=== PATIENT | female | born 1955 | race Caucasian/White ===

== ENCOUNTER 2017-11-30 21:55 | Emergency (ER) | payer OTHER ==
--- NOTE | 2017-11-30 22:29 | ERPHSYRPT ---
- History of Present Illness Time Seen by Provider: 11/30/17 22:18 Source: patient Exam Limitations: no limitations Physician History: Patient is a 62-year-old female with her complaining that she woke up today with a headache. It is continued with pain behind her eyes. She was to work tonight is unable to. Her blood pressure has been okay the past few weeks but today it was elevated. She took an old by systolic that she had for her blood pressure. She's been taking Aleve all day for the headache without relief. She took one of her 's [place] was without relief as well. She is slightly nauseated. She is photophobic. She has not vomited. She had some chest pain that she is describing as pressure that has completely resolved. This was after she took the by systolic. She also complained of some "burning" in her arms and legs that has completely resolved as well. Tonight she just comes in for her headache. Her past medical history is significant for hypertension, depression, and migraine headaches. Timing/Duration: today, improved Severity: moderate Modifying Factors: Improves With: ibuprofen Associated Symptoms: nausea, headaches, No vomiting, No abdominal pain Allergies/Adverse Reactions: No Known Drug Allergies Allergy (Verified 11/30/17 22:21) Home Medications: Cetirizine HCl/Pseudoephedrine [Allergy D-12 Tablet] 1 each PO DAILY 10/09/13 [ History] Fluoxetine HCl 20 mg [Prozac 20 MG] 20 mg PO DAILY 11/30/17 [History] Hx Tetanus, Diphtheria Vaccination/Date Given: Yes Hx Influenza Vaccination/Date Given: Yes (2012) Hx Pneumococcal Vaccination/Date Given: No - Review of Systems Constitutional: No Fever, No Chills Eyes: No Symptoms Ears, Nose, & Throat: No Symptoms Respiratory: No Cough, No Dyspnea Cardiac: Chest Pain Abdominal/Gastrointestinal: Nausea, No Abdominal Pain, No Vomiting, No Diarrhea Genitourinary Symptoms: No Dysuria Musculoskeletal: No Back Pain, No Neck Pain Skin: No Rash Neurological: Headache Psychological: No Symptoms Endocrine: No Symptoms Hematologic/Lymphatic: No Symptoms Immunological/Allergic: No Symptoms All Other Systems: Reviewed and Negative - Past Medical History Pertinent Past Medical History: Yes Neurological History: Migraines Cardiac History: Hypertension Other Medical History: history of ireg rapid heart beat - Past Surgical History Past Surgical History: Yes Musculoskeletal: Orthopedic Surgery Female Surgical History: Section, Tubal Ligation Other Surgical History: TONSILS times 2, d/c times 2, tumor removed under nail left hand - Social History Smoking Status: Never smoker Exposure to second hand smoke: No Drug Use: none Patient Lives Alone: No - Nursing Vital Signs Nursing Vital Signs: Initial Vital Signs Temperature 98.6 F 11/30/17 21:58 Pulse Rate 86 11/30/17 21:58 Respiratory Rate 18 11/30/17 21:58 Blood Pressure 183/111 11/30/17 21:58 O2 Sat by Pulse Oximetry 100 11/30/17 21:58 Pain Scale Pain Intensity 5 - Physical Exam General Appearance: no apparent distress, alert Eye Exam: PERRL/EOMI, eyes nml inspection, photophobia Ears, Nose, Throat Exam: normal ENT inspection, TMs normal, pharynx normal, moist mucous membranes Neck Exam: normal inspection, non-tender, supple, full range of motion Respiratory Exam: normal breath sounds, lungs clear, No respiratory distress Cardiovascular Exam: regular rate/rhythm, normal heart sounds, normal peripheral pulses Gastrointestinal/Abdomen Exam: soft, normal bowel sounds, No tenderness, No mass Pelvic Exam: not done Rectal Exam: not done Back Exam: normal inspection, normal range of motion, No CVA tenderness, No vertebral tenderness Extremity Exam: normal inspection, normal range of motion, pelvis stable Neurologic Exam: alert, oriented x 3, cooperative, normal mood/affect, nml cerebellar function, nml station & gait, sensation nml, No motor deficits Skin Exam: normal color, warm, dry, No rash Lymphatic Exam: No adenopathy SpO2 Interpretation: normal Oxygen Delivery: Room Air - Course EKG Interpreted by Me: RATE, Sinus Rhythm, NORMAL AXIS, NORMAL INTERVALS, NORMAL QRS, NORMAL ST-T Ordered Tests: Medication Summary Discontinued Medications Generic Name Dose Route Start Last Admin Trade Name Freq PRN Reason Stop Dose Admin Ketorolac Tromethamine 30 mg 11/30/17 22:33 11/30/17 22:51 Toradol 30 Mg Injection IV 11/30/17 22:34 30 mg STAT ONE Administration Ketorolac Tromethamine Confirm 11/30/17 22:40 Toradol 30 Mg Injection Administered 11/30/17 22:41 Dose 30 mg .ROUTE .STK-MED ONE Labetalol HCl 10 mg 11/30/17 23:07 11/30/17 23:13 Trandate 20 Mg/5 Ml Syringe IV 11/30/17 23:08 10 mg STAT ONE Administration Labetalol HCl Confirm 11/30/17 23:12 Trandate 100 Mg/20 Ml Mdv For Drip Administered 11/30/17 23:13 Dose 100 mg IV .STK-MED ONE Promethazine HCl 25 mg 11/30/17 22:34 11/30/17 22:50 Phenergan 25 Mg Inj IV 11/30/17 22:35 25 mg STAT ONE Administration Promethazine HCl Confirm 11/30/17 22:40 Phenergan 25 Mg Inj Administered 11/30/17 22:41 Dose 25 mg .ROUTE .STK-MED ONE - Progress Progress: improved Counseled pt/family regarding: diagnosis, need for follow-up - Departure Time of Disposition: 22:33 Departure Disposition: Home Clinical Impression: Migraine headache, HTN (hypertension) Condition: Stable Critical Care Time: No Referrals: FRANK WARNER MD [Primary Care Provider] - Additional Instructions: You had a migraine headache today that we treated with Toradol 30 mg and Phenergan 25 mg IV in the ER. Your blood pressure was elevated and retreated the elevated blood pressure with labetalol 10 mg by IV. Follow-up with your primary medical doctor as soon as convenient for you for reevaluation of your hypertension.
[2017-11-30] MEDS ORDERED: TORAdol 30 mg Injection IV ONE (22:33)
[2017-11-30] MEDS ORDERED: Phenergan 25 MG INJ IV ONE (22:34)
[2017-11-30] MEDS ORDERED: Phenergan 25 MG INJ ONE (22:40)
[2017-11-30] MEDS ORDERED: TORAdol 30 mg Injection ONE (22:40)
[2017-11-30] MEDS ORDERED: TRANDATE 20 MG/5 ML SYRINGE IV ONE (23:07)
[2017-11-30] MEDS ORDERED: TRANDATE 100 MG/20 ML MDV FOR DRIP IV ONE (23:12)
[2017-12-01 01:06] VITALS: BP 147/84; PULSE 68; O2SAT 98
== END 2017-12-01 01:04 | disposition home or self-care (01) ==
LOC: ED 21:55
DX: G43.909 Migraine, unspecified, not intractable, without status migrainosus (principal); I10 Essential (primary) hypertension
CPT/HCPCS: 96374; 96375; 99284; J1885; J2550